=== PATIENT | male | born 1970 | race Caucasian/White ===

== ENCOUNTER 2024-01-08 00:13 | Inpatient (IN) | payer OTHER, SELFPAY ==
[2024-01-07 19:10] VITALS: BP 149/91
[2024-01-07 19:29] LABS: % Basophils 0.7 % (0-2); % Eosinophils 7.5 % (0-6); % Immature Granulocytes 0.2 % (0-0.5); % Lymphocytes 10.1 % (20.5-51.1); % Monocytes 17.4 % (1.7-9.3); % Neutrophils 64.1 % (42.2-75.2); Absolute Eosinophils 0.4 10^3/uL (0-0.7); Absolute Lymphocytes 0.6 10^3/uL (1.2-3.4); Absolute Neutrophils 3.8 10^3/uL (1.4-6.5); Hematocrit 39.5 % (39.0-52.0); Hemoglobin 13.8 g/dL (13.0-18.0); Mean Corp Hgb Conc. 34.9 g/dL (33.0-37.0); Mean Corpuscular Hgb 28.8 pg (27.0-31.0); Mean Corpuscular Volume 82.5 fL (80.0-94.0); Mean Platelet Volume 9.6 fL (7.4-10.4); Nucleated Red Blood Cells % 0 % (-); Platelet Count 139 10^3/uL (130-400); Red Blood Cell Count 4.79 10^6/uL (4.70-6.10); Red Cell Dist. Width 12.4 % (11.5-14.5); White Blood Cell Count 5.9 10^3/uL (4.8-10.8)
[2024-01-07 19:47] LABS: ALT (SGPT) 17 U/L (0-50); AST (SGOT) 19 U/L (17-59); Albumin 4.2 g/dl (3.5-5.0); Alkaline Phosphatase 86 U/L (38-126); Blood Urea Nitrogen 11 mg/dl (9-20); Calcium 8.9 mg/dl (8.4-10.2); Carbon Dioxide 26 mmol/L (22-30); Chloride 105 mmol/L (98-107); Glucose 78 mg/dl (70-99); Potassium 3.9 mmol/L (3.5-5.1); Sodium 142 mmol/L (135-145); Total Bilirubin 0.6 mg/dl (0.2-1.3); Total Protein 6.8 g/dl (6.3-8.2); eGFR > 60.00
[2024-01-07 20:51] VITALS: BMI 32.9
[2024-01-07 20:52] VITALS: BP 142/74
--- NOTE | 2024-01-07 20:52 | ED.GENMED ---
History of Present Illness
General
Chief Complaint: Cough
Source: patient
Exam Limitations: none
Time Seen by Provider: 01/07/24 20:30
History of Present Illness
History of Present Illness:
This is a 52 year old male that comes in with c/o cough. States that he has been coughing for the past 2-3 months. states that this started in October. States that every time he lays down he hears bubbling in his chest. States that 2 weeks ago
he started to cough up blood. States that his PCP said it could be asthma and gave him an inhaler and he had an X-ray done. States that she called today ad told him to come to the ER that the x-ray was abnormal. States that he feels slightly SOB and
he is still coughing up blood. States that for the past 2 days when he has gotten out of his truck he felt like he had a hang over or dizzy. Denies any fever, chills, chest pain, abd pain, nausea, vomiting, diarrhea, headache, urinary burning.
Past History
Past History
ED Past Medical History: None; Negative Asthma, HTN, Hypercholesterolemia or NIDDM
ED Past Surgical History: None
Social History
Tobacco: Former smoker
Alcohol: Daily (Beer or wine 2 glasses)
Personal:
Living: with family
Employment: Employed
Review of Systems
Review of Systems
All Other Systems: ROS reviewed and negative except as documented in HPI and ROS
Constitutional: Reports no symptoms; Denies fever or chills
EENT: Reports no symptoms
Respiratory: Reports cough, hemoptysis and trouble breathing (Slight)
Cardiac: Reports no symptoms; Denies chest pain
ABD/GI: Reports no symptoms; Denies abdominal pain, nausea, vomiting or diarrhea
: Reports no symptoms; Denies dysuria, frequency or urgency
Musculoskeletal: Reports no symptoms
Skin: Reports no symptoms
Neurological: Reports dizzy (for 2 days or like he had a hang over); Denies headache
Psychiatric: Reports no symptoms
Phy Exam
General Physical Exam
General Presentation: well appearing and no apparent distress
General age: appears stated age
General Skin: warm and dry
General Habitus: normal
General Mental: alert
General Hydration: appears well hydrated
ENT Exam
ENT Exam: TM's normal, pharynx normal and neck supple
Eye Exam
Eye Exam: EOMI
Cardiovascular Exam
Cardiovascular Exam: regular rate/rhythm, no edema, no murmur and normal peripheral pulses
Pulmonary Exam
Pulmonary Exam: lungs clear, no respiratory distress, no rales, chest non tender, no crackles, no rhonchi, no wheezing and no cough
Gastrointestinal Exam
Gastrointestinal Exam: normal bowel sounds, non tender, soft, no organomegaly, no pulsatile mass and non distended
Musculoskeletal Exam
Musculoskeletal Exam: full ROM and no edema
Skin Exam
Skin Exam: normal color, warm/dry, no rash and no petechia
Psychiatric Exam
Psychiatric Exam: normal mood/affect
Course
Orders/Labs/Results
Orders:
Orders
01/07/24 19:16
CR Chest - 2 Views Urgent
Comment:
Reason For Exam: sob and cough for 2 months
01/07/24 19:21
Complete Blood Count/With Diff Urgent
Comprehensive Metabolic Panel Urgent
01/07/24 20:44
CT Chest With Iv Contrast Urgent
Comment:
Reason For Exam: abnrmal chest x-ray, Cough up Blood
01/07/24 20:50
PT/INR [Prothrombin Time] Urgent
01/07/24 23:34
Quantify Hemopytsis As Directed
01/07/24 23:35
Consult Notification Routine
Specialty to Notify: IRAD (Interventional Radiology)
IRAD CONSULT Routine
Consulting Provider: Stanton Poole
Was physician already notified: No
Reason for Consult/Procedure: biopsy
Acknowledgement that appropriate orders are entered: Yes
PULMONARY CONSULT Routine
Consulting Provider: Gregorio Rashid
Was physician already notified: No
Reason for consult: pulmonary nodules concern for metstatic disease
01/07/24 23:36
Consult Notification Routine
Specialty to Notify: Pulmonary
01/07/24 23:41
Admit/Transfer Patient As Directed
Co-Sign Provider:
Level of Care: Inpatient admission
Assign to:: Medical/Surgical
Physician / Group: leonely
Diagnosis: pulmonary nodules, concern for metstatic disease
Reason for Hospitalization: concern for metastatic disease
Expected length of stay greater than two midnights?: Yes
ELOS- Estimated Length of Stay in days: 3
I certify the patient meets the requirements for IP care: Yes
PRN Pain Medication Management As Directed
May give lesser potent ordered pain med per pt: Yes
preference::
Protocol:: Medication orders for pain may be administered in a
manner that supports deferring to patient preference
when the pt is:
- Requesting an ordered lesser potent pain medication.
Least to most potent pain medications are defined
as: acetaminophen < NSAID < tramadol < opioids
(morphine, oxycodone, hydromorphone).
- Requesting a lesser dose of the same medication IF
ORDERED.
- Requesting a less intrusive route of administration
if both routes are prescribed by the provider (PO <
IV).
01/07/24 23:42
Code Status As Directed
Resuscitation Status: Full Code
01/08/24 01:36
Acetaminophen [Tylenol] 650 mg PO Q4HPRN PRN
Bisacodyl [Dulcolax] 10 mg RECTAL [id number] PRN
Docusate W/Senna [Senokot-S] 1 tablet PO BIDPRN PRN
Polyethylene Glycol Powder [Miralax] 17 grams PO DAILYPRN PRN
01/08/24 01:36
Activity As Directed
Activity Level: As Tolerated
Venous Foot Pumps As Directed
Location: Bilateral feet
Vital Signs As Directed
Frequency: Per unit guidelines
DX Deep Vein Thrombosis Video Routine
01/08/24 Breakfast
Regular
At Your Request: Full Participation
Basic Metabolic Panel IN AM
Complete Blood Count/No Diff IN AM
01/09/24 06:00
Basic Metabolic Panel IN AM
Complete Blood Count/No Diff IN AM
01/10/24 06:00
Basic Metabolic Panel IN AM
Complete Blood Count/No Diff IN AM
01/11/24 06:00
Basic Metabolic Panel IN AM
Complete Blood Count/No Diff IN AM
01/12/24 06:00
Basic Metabolic Panel IN AM
Complete Blood Count/No Diff IN AM
Abnormal Lab Results
01/07/24
19:21
Absolute Lymphs (auto) 0.6 L 10^3/uL
(1.2-3.4)
Absolute Monos (auto) 1.0 H 10^3/uL
(0.1-0.6)
Lymphocytes % 10.1 L %
(20.5-51.1)
Monocytes % 17.4 H %
(1.7-9.3)
Eosinophils % 7.5 H %
(0-6)
01/07/24 19:21
01/07/24 19:21
Labs unremarkable. PT 13.7 with INR 1.07
Vital Signs
Initial and Last Documented VS:
Initial Vital Signs
Temp Pulse Resp BP Pulse Ox
98 F 89 18 149/91 97
01/07/24 19:10 01/07/24 19:10 01/07/24 19:10 01/07/24 19:10 01/07/24 19:10
Last Documented Vital Signs
Temp Pulse Resp BP Pulse Ox
98.2 F 70 18 132/79 99
01/08/24 02:07 01/08/24 02:07 01/08/24 02:07 01/08/24 02:07 01/08/24 02:07
MDM/Problems Addressed
Differential Diagnosis Includes:
TB, Lung cancer. PE
MDM/Problems Addressed:
This is a 53 year old male that comes in with c/o cough which has been going on for the past 2-3 months. States that he has started to cough up blood over the past 2 weeks. States that he had a chest x-ray done and was called and told to come to the
ER as this was abnormal. states that they are very scarred.
Will check labs and get CT of the chest.
Back into see patient. Explained that his CT shows that he has multiple pulmonary nodules that are most likely Neoplasm/metastases. With patient having Hemoptisis and his new diagnoses will admit patient for further evaluation. Hospitalist notified.
Chronic conditions affecting care:
NA
Acute Exacerbation and/or Progression of Chronic Illness:
NA
*Radiology
Radiology exam reviewed: radiology read reviewed (Chest-Bilateral perihilar fullness/consolidation. Findings are suspicious for abnormal lymphadenopathy. Consider outpatient workup with dedicated contrast-enhanced CT chest. CT chest-Multiple
pulmonary nodules most in keeping with neoplasm/metastasis. The dominent 2.0cm left lower lobe pulmonary ) and all reviewed NAD by ED Provider (CT chest cont-nodule may reflect the primary neoplasm, versus metastasis of unknown origin. The
[facility] pulmonary Nodule advisory board will be notified. Extensive confluent metastatic mediastinal/hilar lymphadenopathy. )
*Pulse Oximetry
Patient hypoxic: no
*EKG
Interpreted by ED Provider?: NA
Rate: EKG- N/A
*Automobile Technician Interpretation
Rate: Automobile Technician- N/A
*Critical Care Note
Total Time (30-74mins, 75-104mins- exclusive of procedures): Not Applicable
ED Attending Note
-
Portions of this chart may have been created with voice recognition software.� Occasional wrong word or��sound alike� substitutions may have occurred due to the inherent limitations of voice recognition software.
Discharge Plan
Departure
Patient Disposition: Admit
Date of Disposition: 01/07/24
Time of Disposition: 23:22
Admit to: Med/Surg
Presentation/result/management discussed w/ accepting MD/DO: Hospitalist
Patient with high blood pressure during this ER visit?: Yes
Condition: Good
Covid-19: Not Applicable
Discharge Problem:
Cough with hemoptysis, Pulmonary nodules possible neoplasm
Interventions
Interventions:
*Risk Screen - Suicide Last Done: 01/08/24 01:37
*General Assessment Last Done: 01/07/24 20:51
*Neglect/Abuse Screening Last Done: 01/07/24 20:51
*ED COVID-19 Vaccine History Last Done: 01/08/24 01:37
*Nursing Disposition Last Done: 01/08/24 01:20
ED- Pulmonary Assessment Last Done: 01/07/24 20:55
Discharge Date and Time
Discharge Date/Time: 01/08/24 01:20
[2024-01-07 21:00] VITALS: BP 131/71
[2024-01-07 21:06] LABS: INR 1.07; PT 13.7 Sec (11.4-14.6)
[2024-01-07 22:12] VITALS: BP 133/80
[2024-01-07 23:00] VITALS: BP 145/80
--- NOTE | 2024-01-07 23:23 | HPS.HSE ---
Family Physician
-
Family Physician: Moni Krishna
Chief Complaint
-
cough
History of Present Illness
This is a 52 year old male with no significant PMH presented to us with cough for 3 months. States that 2 weeks ago he started to cough up blood, some tissues which is sometimes bloody or white. States that his PCP said it could be asthma and gave
him an inhaler and he had an X-ray done. States that she called today ad told him to come to the ER that the x-ray was abnormal. States that he feels slightly SOB and he is still coughing up blood. States that for the past 2 he feels dizzy. Denies
any fever, chills, chest pain, abd pain, nausea, vomiting, diarrhea, headache, urinary burning.
chest CT with Multiple pulmonary nodules most in keeping with neoplasm/metastases. The dominant 2.0 cm left lower lobe pulmonary nodule may reflect the primary neoplasm, versus metastasis of unknown origin. The [facility] Pulmonary Nodule
Advisory Board will be notified.
2. Extensive confluent metastatic mediastinal/hilar lymphadenopathy.
admitting for further managment.
Medical History
Past Medical History
Past Medical History: Reports None
Past Surgical History: Reports None
Social History
Tobacco: Former Smoker
Alcohol: Occasional
Drug: None
Personal:
Living: With Family
Employment: Employed
Family History
Family History: Cancer (aunt with lung ca)
Allergies / Home Medications
Allergies reflects when Allergies were last updated in [facility] Financial [employer].
Home Medications with original date entered in [facility]
Allergy/Medication List:
Allergies
Allergy/AdvReac Type Severity Reaction Status Date / Time
No Known Allergies Allergy Unverified 01/07/24 19:09
Home Medications
albuterol sulfate 90 mcg/actuation aerosol inhaler 1 puff inhalation R Q4HPRN PRN sob/wheezing 01/07/24
Review of Systems
-
Constitutional: Reports No Symptoms
EENT: Reports No Symptoms
Respiratory: Reports Cough, Hemoptysis and Trouble Breathing
Cardiac: Reports No Symptoms
Abdomen/GI: Reports No Symptoms
: Reports No Symptoms
Musculoskeletal: Reports No Symptoms
Skin: Reports No Symptoms
Neurological: Reports Dizzy
Endocrine: Reports No Symptoms
Hematologic/Lymphatic: Reports No Symptoms
Psych: Reports No Symptoms
Physical Exam
Vital Signs
Vital Signs
Temp Pulse Resp BP Pulse Ox
98.0 F 76 23 131/71 95
01/07/24 20:52 01/07/24 21:45 01/07/24 21:45 01/07/24 21:00 01/07/24 21:12
Physical Exam
General: Well Developed, Well Nourished and No Apparent Distress
HEENT: NormoCephalic, Moist mucous membranes and Atraumatic
Respiratory: Clear
Cardiac: S1/S2 and Regular Rhythm; No Murmur or Rub
GI: Soft, Non Tender, Non Distended and Normal Bowel Sounds; No Organomegaly
Rectal: Deferred by Provider
Musculoskeletal: No Clubbing, No Cyanosis and No Edema
Skin: No Rash
Neuro: AO x 3 and Nonfocal/grossly intact
Psych: Calm
Laboratory Results
-
01/07/24 19:21
01/07/24 19:21
Laboratory Results
PT 13.7 Sec (11.4-14.6) 01/07/24 20:50
INR 1.07 01/07/24 20:50
Total Bilirubin 0.6 mg/dl (0.2-1.3) 01/07/24 19:21
AST 19 U/L (17-59) 01/07/24 19:21
ALT 17 U/L (0-50) 01/07/24 19:21
Alkaline Phosphatase 86 U/L (38-126) 01/07/24 19:21
Data Reviewed
-
Diagnostic Radiology: Report Reviewed by me
CT Scan: Report Reviewed by me
Impression/Plan
-
#hemoptysis/pulmonary nodules concern for metastatic disease
-CT with Multiple pulmonary nodules most in keeping with neoplasm/metastases. The dominant 2.0 cm left lower lobe pulmonary nodule may reflect the primary neoplasm, versus metastasis of unknown origin. The [facility] Pulmonary Nodule Advisory
Board will be notified.
2. Extensive confluent metastatic mediastinal/hilar lymphadenopathy.
-chest x ray with Bilateral perihilar fullness/consolidation. Findings are suspicious for abnormal lymphadenopathy. Consider outpatient workup with dedicated contrast-enhanced CT chest.
-pulmonology consulted
-IR and pulmonology consulted
-quantify hemoptysis
#DVT prophylaxis
-scd
#CODE status
-full code
--- NOTE | 2024-01-07 23:41 | W.PN.UPDATE ---
Update Note
Progress Note Update
This note serves as an addendum to the H&P by conference director ALEX Swathi MCKEON
HPI
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
- 2 weeks ago new onset of cough up blood.
- PCP said it could be asthma and gave him an inhaler and he had an X-ray done.
- OP CXR was abnormal sent in to ER
- slightly SOB and he is still coughing up blood.
ROS Denies any fever, chills, chest pain, abd pain, nausea, vomiting, diarrhea, headache, urinary burning.
PHX: Nil
Reviewed VS: Unremarkable
PE
Gen: Not toxic
HEENT:anicteric
Neck: supple
Lungs:clear, no respiratory distress, no rales, chest non tender, no crackles, no rhonchi, no wheezing
Cor: RRR S1 S2
Abdomen: soft and benign
MEAL COOKER: AAO3
MS: no edema
Psych:Nl affect
Data
Unremarkable CBC
Unremarkable CMP
CT Chest With Iv Contrast
1. Multiple pulmonary nodules most in keeping with neoplasm/metastases. The dominant 2.0 cm left lower lobe pulmonary nodule may reflect the primary neoplasm, versus metastasis of unknown origin. The [facility] Pulmonary Nodule Advisory Board
will be notified.
2. Extensive confluent metastatic mediastinal/hilar lymphadenopathy.
No prior hospitalist admission:
ASSESSMENT & PLAN
Pending Rx reconciliation
Hemoptysis
CT POS for Multiple pulmonary nodules most in keeping with neoplasm/metastases.
Extensive confluent metastatic mediastinal/hilar lymphadenopathy.
- Quantify hemoptysis
- IR consult for [place]
- Pul consult
DVT Px: SCD
Full code
IP MS
[2024-01-08 00:19] VITALS: BP 142/86
[2024-01-08 01:00] VITALS: BP 133/86
[2024-01-08 01:30] VITALS: BMI 31.8
--- NOTE | 2024-01-08 01:30 | PTCARENOTE ---
Received patient from ED. Patient AAOx, ambulated to the bedside independently. Assessment completed. VSS. Patient oriented to the unit. Patient verbalized an understanding to ring as needed.
[2024-01-08 02:07] VITALS: BP 132/79
[2024-01-08 08:41] VITALS: BP 148/77
--- NOTE | 2024-01-08 08:49 | CON.PUL ---
Consultation
Consultation Request
Date/Time Consultation Requested: 01/07/20242334
Date/Time Consultation Performed: 01/08/2024836
Requesting Provider: WILBER Rosa
Performing Provider: Gregorio Rashid MD
Reason for Consultation: Abnormal chest CT - lung nodules and mediastinal/hilar lymphadenopathy
Medical History
-
Chief Complaint: Coughing up blood
History of Present Illness:
53-year-old male former tobacco smoker with a 7�8-pack-year history presents with coughing up blood for about 1-2 weeks. The amount of blood coming up is droplets which feel rubbery in consistency. His cough started about 2 months ago and he has
had a history of walking pneumonia. Of note, he did have a chest x-ray earlier this past week at [facility] and was called just yesterday and told that there was some abnormalities however due to his continued cough with bloody phlegm he came here
to the ER [facility] for further evaluation. Of note, he did bring this up with his PCP and said that his cough could be due to asthma and he was given an inhaler however his symptoms persisted. He is also been feeling some dizziness. He was
afebrile in the ER to 90 �F, pulse rate 89, breathing at 18 breaths/min, BP 149/91 and saturating 97% on room air. Labs significant for Hb 13.8, and absolute eosinophil count 400. CXR showed bilateral perihilar fullness with suspected
lymphadenopathy. CT chest with IV contrast showed multiple lung nodules with largest in the left lower lobe measuring 2 cm, with extensive confluent metastatic mediastinal/hilar lymphadenopathy. He was admitted to Med-Surg under the hospitalist
and pulmonary consulted for additional management/recommendations.
When I saw the patient this morning he was resting in bed in no acute distress on room air breathing comfortably. His sister, Henrietta was in the room and all questions were answered. He denies having any history of coughing up blood, has no
history of lung cancer or cancer in general, and no family history of lung cancer or lymphoma although his aunt did have brain cancer. 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 No
recent illness or travel. Denies unintentional weight loss or night sweats. He wants to get a biopsy of his lymph nodes that are enlarged and lung nodules but he does not want to stay in the hospital past the day if the biopsy will not happen
until next week. He currently denies chest pain, DEVI, abdominal pain, nausea, fevers or chills. He did cough up a little bit of blood this morning but it was a small amount and has not recurred since that time.
PMHx: Former tobacco smoker (quit approximately 12 years ago with about a 7�8-pack-year history)
PSHx: Non-contributory
Past Medical History
Past Medical History: Other (Above as per HPI)
Past Surgical History: Other (Above as per HPI)
Social History
Tobacco: Former Smoker (Quit 12 years ago, smoked 0.75 PPD X 10 years)
Alcohol: Occasional
Drug: None
Personal:
Living: With Family
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
Family History
Family History: Cancer (Aunt: Brain cancer)
Allergies / Home Medications
Allergies
Allergy/AdvReac Type Severity Reaction Status Date / Time
No Known Allergies Allergy Unverified 01/07/24 19:09
Home Medications
�Medication �Instructions �Recorded �Confirmed �Last Taken �Type
albuterol sulfate 90 mcg/actuation 1 puff inhalation R Q4HPRN PRN 01/07/24 01/07/24 01/07/24 History
aerosol inhaler sob/wheezing
Review of Systems
-
History Source: Patient
All other systems: Negative unless noted
Vitals / Labs / Diagnostic Testing
Vital Signs
Temp Pulse Resp BP Pulse Ox
98.5 F 65 16 148/77 96
01/08/24 08:41 01/08/24 08:41 01/08/24 08:41 01/08/24 08:41 01/08/24 09:22
Lab Data
01/08/24 08:38
01/08/24 08:38
Laboratory Results
01/07/24
20:50
PT 13.7
INR 1.07
Diagnostic Testing:
Physical Exam
-
HEENT: Normocephalic and Anicteric
Cardiovascular: S1/S2 and Peripheral Edema (negative)
Respiratory: Wheeze (negative), Rales (negative), Rhonchi (negative) and Non-Labored Respirations
GI: Soft, Non Distended, Non Tender and Normal Bowel Sounds
Neurology: AO x 3 and Tremors (negative)
Skin: Warm and Dry
General: Respiratory Distress (negative), Comfortable, Chills (negative) and Sweats (negative)
Assessment
-
Assessment: 53-year-old male former tobacco smoker with a 7�8-pack-year history presents with coughing up blood for about 1-2 weeks. The amount of blood coming up is droplets which feel rubbery in consistency. His cough started about 2 months ago
and he has had a history of walking pneumonia. Of note, he did have a chest x-ray earlier this past week at [facility] and was called just yesterday and told that there was some abnormalities however due to his continued cough with bloody phlegm he
came here to the ER [facility] for further evaluation. Of note, he did bring this up with his PCP and said that his cough could be due to asthma and he was given an inhaler however his symptoms persisted. He is also been feeling some dizziness.
He was afebrile in the ER to 90 �F, pulse rate 89, breathing at 18 breaths/min, BP 149/91 and saturating 97% on room air. Labs significant for Hb 13.8, and absolute eosinophil count 400. CXR showed bilateral perihilar fullness with suspected
lymphadenopathy. CT chest with IV contrast showed multiple lung nodules with largest in the left lower lobe measuring 2 cm, with extensive confluent metastatic mediastinal/hilar lymphadenopathy. He was admitted to Med-Surg under the hospitalist
and pulmonary consulted for additional management/recommendations.
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
Impression:
#Multiple pulmonary nodules with extensive hilar/mediastinal lymphadenopathy suspicious for metastatic lung cancer
#Nqu-ujfq-djxpzavgcds hemoptysis likely due to acute bronchitis however may also be due to undiagnosed lung cancer
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
#Former tobacco smoker, quit 12 years ago with 7.5-pack-year history
Plan:
- Recommend tissue biopsy with robotic bronchoscopy with EBUS; his left lower lobe nodule is the dominant nodule and peripheral, however he does have other perihilar nodules which would easily be accessible via robotic bronchoscopy
- If for whatever reason robotic bronchoscopy is delayed then we can have IR perform CT-guided transthoracic needle aspiration on left lower lobe nodule; otherwise I will arrange for robotic bronchoscopy with EBUS for this upcoming week or the week
after depending on scheduling
- We will obtain an outpatient whole-body PET/CT with brain MRI
- Will also refer to see oncology as an outpatient
- Of note, his imaging is not consistent with silicosis, as he admits that he has been exposed to silica through his job (construction)
- Maintain SpO2 >90-94% --> currently on room air breathing comfortably and saturating 96%
- Outpatient pulmonary follow up with me for full PFTs
- Incentive spirometer encouraged
- Replete electrolytes with K>4, Mg>2
- Maintain euglycemia with goal BG >100 and <180
- prn nebulized bronchodilators - not currently bronchospastic
- DVT ppx
Patient being prepared for discharge home. I will arrange for outpatient pulmonary follow up with EBUS-bronchoscopy with robotic bronchoscopy. He will also need outpatient whole body PET/CT with brain MRI with Oncology outpatient follow up. No
additional pulmonary recommendations at this time. Pulmonary service will now sign off. Thank you for allowing us to be involved in the care of this patient. Please reconsult if there are any additional questions/concerns, or if patient's
respiratory status deteriorates.
Data:
CT chest with IV contrast 01/07/2024:
1. Multiple pulmonary nodules most in keeping with neoplasm/metastases. The dominant 2.0 cm left lower lobe pulmonary nodule may reflect the primary neoplasm, versus metastasis of unknown origin. The [facility] Pulmonary Nodule Advisory Board
will be notified.
2. Extensive confluent metastatic mediastinal/hilar lymphadenopathy.
CXR 01/07/2024: Bilateral perihilar fullness/consolidation. Findings are suspicious for abnormal lymphadenopathy. Consider outpatient workup with dedicated contrast-enhanced CT chest.
Total time spent today was 56 minutes for this encounter. Time includes reviewing laboratory test/imaging results, reviewing pertinent medical records, obtaining and reviewing medical history, performing an appropriate exam, ordering medications,
tests and procedures. Time also includes documentation of this encounter, coordinating patient care and communicating with other healthcare professionals. Total time does not include separately billed tests performed on this date of service.
--- NOTE | 2024-01-08 08:56 | W.PN.UPDATE ---
Update Note
Progress Note Update
I saw and evaluated the patient. I reviewed the resident�s note and agree with findings and plan as documented in the resident�s note.
Scant hemoptysis overnight. Denies shortness of breath.
Gen: NAD, AAOx3.
Eyes: EOMI, PERRLA, no scleral icterus.
Neck: supple.
CV: RRR, +S1/S2, no m/r/g.
Resp: CTAB, no rales, wheezes, or rhonchi.
Skin: No rashes.
Neuro: CN 2-12 intact, non-focal.
Psych: Normal mood and affect.
CTA chest:
1. Multiple pulmonary nodules most in keeping with neoplasm/metastases. The dominant 2.0 cm left lower lobe pulmonary nodule may reflect the primary neoplasm, versus metastasis of unknown origin. The [facility] Pulmonary Nodule Advisory Board
will be notified.
2. Extensive confluent metastatic mediastinal/hilar lymphadenopathy.
Hemoptysis:
-Concern for underlying malignancy as above
-Pulmonary consult placed and case discussed with Dr. Rashid
-Will need CT-guided biopsy by interventional radiology or transbronchial biopsy via EBUS
-Hb 13.8, minimal hemoptysis overnight
-Suspect patient can be discharged with continued outpatient workup
Obesity due to excess calories:
-Encourage weight loss
-Affects all aspects of care
[2024-01-08 09:18] VITALS: BP 129/81; BP 138/81; BP 140/81; PULSE 67; PULSE 68; PULSE 76
--- NOTE | 2024-01-08 09:26 | W.PN.HOSP.TC ---
Addendum entered and electronically signed by Francois Sanchez MD 01/08/24 14:18:
Total time spent on d/c = 31 min. This included today's physical exam, progress note, review of laboratory and diagnostic data, preparation of discharge documents and prescriptions, and discussions about the pt's hospital course and discharge plan
with the patient and other lpn medical assistant involved in the patient's care.
Original Note:
Today's Communication/Plan
-
.
Assessment / Plan
Assessment / Plan
Assessment/Plan
#Hemoptysis/pulmonary nodules on CT chest
-CTA chest- Multiple pulmonary nodules most in keeping with neoplasm/metastases. The dominant 2.0 cm left lower lobe pulmonary nodule may reflect the primary neoplasm, versus metastasis of unknown origin.
-chest x ray with Bilateral perihilar fullness/consolidation. Findings are suspicious for abnormal lymphadenopathy.
-Pulmonary consulted, pending evaluation
-Will possibly need outpatient workup including CT-guided biopsy or transbronchial biopsy
-Hemoglobin stable, no evidence of bleeding
-Improved hemoptysis overnight
Obesity due to excess calories
-Encouraged weight loss
DVT prophylaxis; SCDs
CODE STATUS; full code
Anticipated Discharge: Within 24 hours
Subjective/Interval History
-
Overnight, patient reports improved hemoptysis. Denies chest pain, denies shortness of breath.
Objective Data
-
Labs:
Laboratory Results
01/07/24 01/08/24
20:50 08:38
WBC Pending
Hgb Pending
Hct Pending
Plt Count Pending
PT 13.7
INR 1.07
Sodium Pending
Potassium Pending
Chloride Pending
Carbon Dioxide Pending
BUN Pending
Creatinine Pending
Glucose Pending
Calcium Pending
Vital Signs:
Vital Signs
Temp Pulse Resp BP Pulse Ox
98.5 F 65 16 148/77 96
01/08/24 08:41 01/08/24 08:41 01/08/24 08:41 01/08/24 08:41 01/08/24 09:22
Review of Systems
-
All other systems: Reviewed and negative (except as documented)
Physical Exam
-
General: Well Developed, Well Nourished and No Apparent Distress
HEENT: Normocephalic and Atraumatic
Respiratory: Clear to Auscultation
Cardiac: Regular Rhythm and S1/S2
GI: Soft, Nontender and Nondistended
Musculoskeletal: No Edema
Neuro: Awake, Alert, Oriented and AO x 3
Psych: Calm
[2024-01-08 09:43] LABS: Hematocrit 39.9 % (39.0-52.0); Hemoglobin 13.6 g/dL (13.0-18.0); Mean Corp Hgb Conc. 34.1 g/dL (33.0-37.0); Mean Corpuscular Hgb 28.6 pg (27.0-31.0); Platelet Count 127 10^3/uL (130-400); Red Blood Cell Count 4.75 10^6/uL (4.70-6.10); Red Cell Dist. Width 12.5 % (11.5-14.5); White Blood Cell Count 5.8 10^3/uL (4.8-10.8)
[2024-01-08 09:49] LABS: Blood Urea Nitrogen 8 mg/dl (9-20); Calcium 8.7 mg/dl (8.4-10.2); Carbon Dioxide 23 mmol/L (22-30); Chloride 107 mmol/L (98-107); Estimated Creatinine Clearance > 125 ml/min; Glucose 101 mg/dl (70-99); Potassium 4.2 mmol/L (3.5-5.1); Sodium 142 mmol/L (135-145); eGFR > 60.00
--- NOTE | 2024-01-08 11:45 | CM ---
Reviewed the chart notes and spoke with the patient and his spouse at the bedside. The patient resides with his spouse in a two story home with 10 steps to enter. The patient reports no DME/VN/SNF in the past. The patient confirmed his pharmacy
of choice is [facility]. CM continues to be available to patient/family and is monitoring medical plan for needs at discharge.
Plan: Discharge to home when medically stable.
--- NOTE | 2024-01-08 14:20 | W.DCSUMMARY ---
Addendum entered and electronically signed by Francois Sanchez MD 01/09/24 08:20:
Read, reviewed, and agree. See same day progress note for additional details.
Original Note:
Discharge Summary
Discharge Data
Date of Admission: 01/08/24
Date of Discharge: 01/08/24
-
Pending Results: No
Hospital Course
This is a 53-year-old male who presented to ED 01/07/2024 complaining of ongoing cough for 3 months. Patient stated when her blood with some tissues, hence decided to see his PCP. PCP advised patient to get an x-ray done. Due to abnormal
x-ray, he was sent to ER for evaluation. On presentation to the ER, patient was afebrile with vital signs stable. He did not require oxygen. Hemoglobin was stable at 13.8. Evaluation with a chest x-ray showed bilateral perihilar
fullness/consolidation. Further workup with a chest CT was needed. Evaluation with chest CT in the ED showed multiple pulmonary nodules, including 2.0 cm left lower lobe pulmonary nodule, reflect primary neoplasm versus metastasis of unknown
origin. In addition extensive confluent metastatic mediastinal/hilar lymphadenopathy was seen on chest CT. Pulmonology was consulted for further evaluation. It was determined that he will require EBUS-bronchoscopy with robotic bronchoscopy, And
further workup/follow-up with the [facility] as an outpatient. In addition, he would also need outpatient whole body PET/CT with brain MRI with oncology outpatient follow-up. Throughout the course of his hospital stay, his cough and hemoptysis
improved. He denied chest pain, denied shortness of breath. Patient will be discharged today with plans to follow-up with [facility] and oncologist outpatient.
Discharge Plan
-
Patient Disposition: Home (Routine Discharge)
Discharge Diagnosis/Procedures: Hemoptysis
pulmonary nodules on CT chest
Condition: Good
Diet: As tolerated
Activity: No restrictions
Driving Restrictions: As prior to admission
Referrals:
Gregorio Rashid MD [Active] - in less than 1 week (will need robotic bronchoscopy with EBUS for multiple lung nodules and mediastinal/hilar lymphadenopathy)
Moni Krishna PA-C [Family Provider] -
Prescriptions:
Continued
albuterol sulfate 90 mcg/actuation HFA aerosol inhaler
1 puff INHALATION R Q4HPRN PRN (Reason: sob/wheezing)
Discharge Orders:
Discharge Patient (As Directed); Ordered 01/08/24
Ordered By: Francois Sanchez
Discharge Date and Time
Print Language: SAMI
[2024-01-08 15:06] VITALS: BP 151/82
== END 2024-01-08 15:20 | disposition home or self-care (01) | DRG 204 ==
LOC: 2 NORTH 00:13
PROVIDERS: Clinical Nurse Specialist Family Health; Registered Nurse; Student in an Organized Health Care Education/Training Program; ADMITTING PHYSICIAN Internal Medicine; ATTENDING PHYSICIAN Internal Medicine; CONSULT PHYSICIAN Internal Medicine Critical Care Medicine; EMERGENCY PHYSICIAN Student in an Organized Health Care Education/Training Program; FAMILY PHYSICIAN Physician Assistant
DX: R91.8 Other nonspecific abnormal finding of lung field (principal); R04.2 Hemoptysis; E11.9 Type 2 diabetes mellitus without complications; I10 Essential (primary) hypertension; R59.0 Localized enlarged lymph nodes; E78.00 Pure hypercholesterolemia, unspecified; Z77.29 Contact with and (suspected) exposure to other hazardous substances; Z79.899 Other long term (current) drug therapy; Z87.891 Personal history of nicotine dependence; Z87.01 Personal history of pneumonia (recurrent); Z80.8 Family history of malignant neoplasm of other organs or systems
CPT/HCPCS: 71046; 71260; 80048; 80053; 85025; 85027; 85610; 99285; Q9967

== ENCOUNTER → 2024-01-12 16:23 | Outpatient (REF) | payer OTHER, SELFPAY ==
[2024-01-12 18:02] LABS: APTT 27.5 Sec (23.4-35.0)
== END ==
LOC: RCS 16:23
PROVIDERS: ATTENDING PHYSICIAN Internal Medicine Critical Care Medicine
DX: R91.8 Other nonspecific abnormal finding of lung field (principal); Z01.82 Encounter for allergy testing
CPT/HCPCS: 36415; 85730; 93005

== ENCOUNTER 2024-01-17 06:22 | Day surgery (SDC) | payer OTHER, SELFPAY ==
[2024-01-17] VITALS (8 sets, daily range): BP systolic 110–133; BP diastolic 59–74; BMI 30.3
== END 2024-01-17 12:00 | disposition home or self-care (01) ==
LOC: GI 06:22
PROVIDERS: ATTENDING PHYSICIAN Internal Medicine Critical Care Medicine
DX: R91.8 Other nonspecific abnormal finding of lung field (principal); R59.0 Localized enlarged lymph nodes; R04.2 Hemoptysis; J98.4 Other disorders of lung; C34.32 Malignant neoplasm of lower lobe, left bronchus or lung; C77.1 Secondary and unspecified malignant neoplasm of intrathoracic lymph nodes; C34.2 Malignant neoplasm of middle lobe, bronchus or lung
CPT/HCPCS: 31629; 31653; 31628; 31627; 31624; 31623; 31654; 88172; 88173; 88305; 71045; 76000; 81459; 88112; 88333; 88341; 88342; 94640; C1887

== ENCOUNTER 2024-11-28 11:03 | Emergency (ER) | payer BC, SELFPAY ==
--- NOTE | 2024-11-28 11:07 | CON.NEURO ---
Addendum entered and electronically signed by Uriel Bergman MD 11/28/24 13:29:
Studies reviewed.
I have personally examined the patient. I reviewed and agree with the BANQUET WAITER/WAITRESS's Note.
My addenda:
Awake, alert, interactive. No acute distress.
Speech intact.
Follows 2-step requests w/o difficulty. No tremor.
Extra-ocular movements grossly intact.
Facial movements full and symmetric. Hearing intact to normal conversational volume.
Normal UE movements bilaterally.
Neck: full ROM.
Chest: no dyspnea
Heart: no JVD
Ext: (-) Clubbing, (-) Cyanosis, (-) Edema
IMPRESSIONS/RECOMMENDATIONS:
Abrupt onset of visual change with blurred vision both monocular and bilaterally
Most likely unrelated to the patient's recent acute ischemic stroke diagnosed during a hospitalization at an outside hospital
There is the possibility of a paraneoplastic etiology, migrainous etiology although the patient is not currently experiencing a headache and possibly metabolic causes
Based on outside hospital test results, there is no additional testing that is needed at this time
Based on the patient using apixaban routinely, would maintain this medication to reduce risk of future ischemic lesions
No clear indication for additional neurological testing at this time
D/W patient / family by phone/ nursing
All questions answered.
Will continue to follow as needed.
Original Note:
Documented by User: Sherice Clifford NP 11/28/24 13:13
Neuro Assessment/Plan
Assessment
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
Head CT 11/28/2024: No acute intracranial abnormality. ASPECT score: 10
Data from [facility] summarized below
Brain MRI 11/25/2024: �Small focus of acute or subacute right frontal cortical ischemia, minimal chronic microangiopathy. No intracranial masses observed.
TTE 11/23/2024: Normal left ventricular function. The estimated ejection fraction is 60-65%. Normal right ventricular size and function, by limited views. No obvious RV strain. No significant hemodynamic valvular disease however not all valves were
well visualized. Doppler signal is inadequate to assess pulmonary hypertension. No previous study available for comparison.
CTA head and neck 11/22/2024: No evidence of focal stenosis, dissection or aneurysm formation.
Labs: Cholesterol 126, LDL 76, Hgb A1C 5.5
Impression: acute visual disturbance with recently diagnosed CVA
Plan
-continue Eliquis
-continue to follow up with quality process lead for TTE to rule out PFO as planned
-continue to follow up with [facility] as planned
-continue to follow up with hematology/oncology as planned
-stroke education material to be provided
All questions encouraged and answered, plan of care discussed with Dr. Pacheco Sylvester, patient and
Consultation
Order
Date of Consultation: 11/28/24
Requesting Provider: hospitalist
Reason for Consult: stroke alert
Subjective/Objective
Subjective Data
Date of Service: November 28, 2024
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 Patient states last Wednesday on 11/22/2024 saw checkerboard flashing lights and blurry vision
to his right eye so he pulled over. Symptoms resolved and drove home. When he got home he told his who instructed him to go to the hospital and was subsequently admitted to [facility] on the same day. There, CTA head and neck showed no
evidence of focal stenosis, dissection or aneurysm formation, echo unrevealing. He was discharged on Wednesday11/25/2024. He had a brain MRI on 11/25 revealed small focus of acute or subacute right frontal cortical ischemia. No intracranial masses
observed. They wanted to get a TTE to ensure no PFO but he did not get it b/c he left AMA as he did not feel he was being monitored closely enough. They recommended he see neuro, cardiology and and eye doctor. He would like to come to [place] for neuro
and cardiology. Breathing was worse over the weekend and he was seen in the [facility]. He was given a medrol pack. He is currently on Eliquis 5 mg bid last dose this morning. This morning around 10:30 noticed blurry vision to both eyes and presented to
the hospital for evaluation as a stroke alert. In ED, BP 133/80 HR 102. Current exam with blurred vision to both eyes. Denies headache, dizziness. Denies issues with speech or swallowing. Denies numbness, tingling or weakness in his extremities.
Notes some issues with constipation due to hemorrhoids. Current NIHSS 0. Not a TNK candidate due to being on anticoagulation and low NIHSS.
Objective Data
Patient Allergies
No Known Allergies Allergy (Verified 01/17/24 07:29)
CVA Assessment
Onset of Stroke Symptoms
Onset of symptoms known: Yes
Date of onset of symptoms: 11/28/24
Time of onset of symptoms: 10:30
Time pt last seen normal is known: Yes
Date last time pt seen normal: 11/28/24
Time last time pt seen normal: 10:30
NIH Stroke Score
Level of Consciousness: 0 - Alert
LOC Questions: 0-Answers both correctly
LOC Commands: 0-Performs both correctly
Best Horizontal Gaze: 0-Normal
Visual Ballard: 0=Normal, no visual loss
Facial Palsy: 0=Normal, symmetrical
Motor - Right Arm: 0=No drift 10 seconds
Motor - Left Arm: 0=No drift 10 seconds
Motor - Right Le-No drift 5 seconds
Motor - Left Le-No drift 5 seconds
Limb Ataxia: 0-Absent
Sensation: 0-Normal
Best Language: 0-No aphasia
Dysarthria: 0-Normal
Extinction and Inattention: 0-No abnormality
NIH Total Score:: 0
Tenecteplase Contraindications
Inclusion and Exclusion criteria reviewed: Yes
Reasons for NON-Tx with Thrombolytics ABSOLUTE Exclusions: Patient taking oral anticoagulant and last dose within 48 hours
IAT Contraindications: NIHSS < 6
Modified [place] Score (MRS)
-
Modified [place] Scale (mRS): No symptoms
Score: 0
Data Reviewed
-
CT-A: Report Reviewed
CT Head: Report Reviewed and Image Reviewed
MRI Head: Report Reviewed
Medical Test Reports: Report Reviewed
Labs: Report Reviewed
Lipid Profile: Report Reviewed
HgbA1C: Report Reviewed
Reviewed with: Physician, Patient and Family
Old Records: Summarized
Medications
-
Home Medications
�Medication �Instructions �Recorded
albuterol sulfate 90 mcg/actuation 1 puff inhalation R Q4HPRN PRN 01/07/24
aerosol inhaler sob/wheezing
Past History
Past History
ED Past Medical History: None; Negative Asthma, HTN, Hypercholesterolemia or NIDDM
ED Past Surgical History: None
Family/Social History
Tobacco: Former smoker
Alcohol: Daily (Beer or wine 2 glasses)
Personal:
Living: with family
Employment: Employed

Documented by User: Uriel Bergman MD 11/28/24 13:26
CVA Assessment
NIH Stroke Score
NIH Total Score:: 0
Modified [place] Score (MRS)
-
Score: 0
[2024-11-28 11:18] VITALS: BP 133/80
[2024-11-28 11:27] VITALS: BP 133/80; BMI 27.0
--- NOTE | 2024-11-28 11:54 | ED.CVA ---
History of Present Illness
General
Chief Complaint: CVA/TIA Symptoms
Time Seen by Provider: 11/28/24 11:12
Onset of Stroke Symptoms
Onset of symptoms known: Yes
Date of onset of symptoms: 11/28/24
History of Present Illness
History of Present Illness:
54-year-old male with history of stage IV non-small cell lung carcinoma presenting to the emergency department for visual changes. Patient reports prior to arrival he started to have blurred vision. Notes similar symptoms last week, at which point
he was admitted to [facility], had thorough reported stroke workup including MRI and CT angiogram without significant acute pathology. Patient with prior history of PE and DVT, now on Eliquis with concern that patient may have had a retinal
artery occlusion. He was placed on dual antiplatelet therapy. He was instructed to follow-up with ophthalmology and was supposed to get a LYN, however left the hospital prior to getting the LYN. They told him in [place] that he may have had a
TIA. He notes that his symptoms last week or visual as well. He was supposed to see his oncologist today for chemotherapy, however did not make it to the appointment. Additionally notes some issues with constipation due to hemorrhoids. Denies
vomiting or significant bloating. Denies weakness or numbness to his extremities or additional acute medical complaint
Past History
Past History
ED Past Medical History: None; Negative Asthma, HTN, Hypercholesterolemia or NIDDM
ED Past Surgical History: None
Social History
Tobacco: Former smoker
Alcohol: Daily (Beer or wine 2 glasses)
Personal:
Living: with family
Employment: Employed
Phy Exam
Physical Exam
Physical Exam:
General: Well-appearing, no clinical signs of dehydration, nontoxic and in no acute distress
HEENT: protecting airway
Neck: appears supple
CV: Normal heart rate, regular rhythm
Resp: No accessory muscle use, no increased work of breathing, lungs clear to auscultation bilaterally
Abd: Soft and non-distended, no tenderness to palpation
Extremities: No deformities, no swelling
Neuro: alert, no focal neurologic deficit
: deferred
Rectal: deferred
Psych: Normal affect
Skin: Intact
NIH Stroke Score
Level of Consciousness: 0 - Alert
LOC questions: 0-Answers both correctly
LOC Commands: 0-Performs both correctly
Best Gaze: 0-Normal
Visual Ballard: 0=Normal, no visual loss
Facial palsy: 0=Normal, symmetrical
Motor - Right Arm: 0=No drift 10 seconds
Motor - Left Arm: 0=No drift 10 seconds
Motor - Right Le-No drift 5 seconds
Motor - Left Le-No drift 5 seconds
Limb Ataxia: 0-Absent
Sensation: 0-Normal
Best Language: 0-No aphasia
Dysarthria: 0-Normal
Extinction and Inattention: 0-No abnormality
Total Score:: 0
Course
Orders/Labs/Results
Orders:
Orders
11/28/24 11:06
CT HEAD STROKE ALERT W/o Cont Urgent
Comment:
Reason For Exam: stroke alert
11/28/24 11:13
Electrocardiogram (*1) Stat
Reason for Study: Other
Other Reason for Exam: neuro symptoms
EKG- Treatment ONCE
11/28/24 11:59
Cardiovascular Evaluation Urgent
Comment: ADD ON
Complete Blood Count/With Diff Urgent
Comprehensive Metabolic Panel Urgent
Free T4 Urgent
Comment: ADD ON
Glycohemoglobin (HgbA1c) Urgent
PTT Urgent
Prothrombin Time Urgent
TSH Urgent
Comment: ADD ON
Troponin I Urgent
Vitamin B12 Urgent
Comment: ADD ON
11/28/24 13:01
Add On- LAB Routine
Tests Added?: lipid panel, hgb A1C, TSH, free t4, B12
Abnormal Lab Results
11/28/24
11:59
WBC 15.9 H 10^3/uL
(4.8-10.8)
RBC 4.55 L 10^6/uL
(4.70-6.10)
Hgb 12.4 L g/dL
(13.0-18.0)
Hct 37.1 L %
(39.0-52.0)
Abs Immat Gran (auto) 0.2 H 10^3/uL
(0-0.05)
Absolute Neuts (auto) 12.4 H 10^3/uL
(1.4-6.5)
Absolute Lymphs (auto) 0.2 L 10^3/uL
(1.2-3.4)
Absolute Monos (auto) 2.0 H 10^3/uL
(0.1-0.6)
Absolute Eos (auto) 0.9 H 10^3/uL
(0-0.7)
Immature Gran % 1.1 H %
(0-0.5)
Neutrophils % 78.4 H %
(42.2-75.2)
Lymphocytes % 1.4 L %
(20.5-51.1)
Monocytes % 12.7 H %
(1.7-9.3)
PT 18.4 H Sec
(11.4-14.6)
Sodium 132 L mmol/L
(135-145)
Carbon Dioxide 21 L mmol/L
(22-30)
BUN 23 H mg/dl
(9-20)
Glucose 118 H mg/dl
(70-99)
ALT 63 H U/L
(0-50)
Albumin 3.1 L g/dl
(3.5-5.0)
11/28/24 11:59
11/28/24 11:59
Vital Signs
Initial and Last Documented VS:
Initial Vital Signs
Pulse Resp Pulse Ox
104 20 95
11/28/24 11:17 11/28/24 11:17 11/28/24 11:17
Last Documented Vital Signs
Temp Pulse Resp BP Pulse Ox
98.1 F 99 22 137/85 95
11/28/24 11:27 11/28/24 13:15 11/28/24 12:45 11/28/24 13:10 11/28/24 13:15
MDM/Problems Addressed
MDM/Problems Addressed:
54-year-old male with history of stage IV lung cancer presenting to the emergency department with visual changes, which started an hour prior to arrival. Vital signs on arrival significant for mild tachycardia.
On exam, patient is in no acute distress or discomfort. Patient met immediately in hospital room, prehospital stroke alert given onset of symptoms. However, on initial evaluation of patient, notes some blurred vision with recent stroke workup last
week. Additionally patient is on blood thinners. Neurology at bedside and stroke exam performed, NIH of 0 presently. No indication for tPA given low stroke scale and anticoagulation. In discussion with patient, notes recent MRI for same symptoms
as well as CTA, without obvious stroke. In discussion with neurology, recommend repeating CT head without contrast without additional modalities.
11:45 - CT head is negative. In discussion with neuro, without current concern for acute CVA given recent negative workup. From neurology perspective, reports no indication for admission. However does recommend outpatient ophthalmology follow-up
for ocular exam. Patient does note some additional abdominal discomfort when he has a bowel movement, reports hemorrhoids. No concern for obstruction, no tenderness to the abdomen, no distention. Will start patient on bowel regiment. Did call
patient's oncologist, Dr. Black at [facility]. Patient is due to have chemotherapy today. He notes that if he can get down to the hospital today, they will be able to do the chemotherapy, otherwise can schedule for later in the
week.
14:20 -patient is labs are unremarkable. On reassessment patient remained stable. He is still having some ocular symptoms. In discussion with patient and , plan for outpatient ophthalmologic follow-up. Will provide information. is
requesting that we start patient on a stool softener, will provide prescription. Patient will call his oncologist tomorrow for potential chemotherapy tomorrow. Ultimately feel stable for discharge, however did advise that if symptoms are worsening
in any manner to return immediately to the hospital for reassessment. Patient verbalized understanding
*Pulse Oximetry
SaO2: 95
Oxygen Mode of Delivery: Room air
Patient hypoxic: no
*EKG
Interpreted by ED Provider?: Yes
EKG Intrepretation Date: 11/28/24
EKG Intrepretation Time: 11:59
Interpretation: normal
Heart Rate: 103
Rate: tachycardiac
Rhythm: sinus
[place]: normal axis
Interval: normal interval
QRS Pattern: normal QRS
Ischemia: no ischemia
*Critical Care Note
Total Time (30-74mins, 75-104mins- exclusive of procedures): Not Applicable
ED Attending Note
-
Portions of this chart may have been created with voice recognition software.� Occasional wrong word or��sound alike� substitutions may have occurred due to the inherent limitations of voice recognition software.
Discharge Plan
Departure
Prescriptions:
No Action
albuterol sulfate 90 mcg/actuation HFA aerosol inhaler
1 puff INHALATION R Q4HPRN PRN (Reason: sob/wheezing)
Patient Comments:
pt given an Albuterol neb in SDS pre-procedure.
Referrals:
UNKNOWN - PT DOES,NOT KNOW [Family Provider]
Interventions
Interventions:
*Risk Screen - Suicide Last Done: 11/28/24 11:47
*General Assessment Last Done: 11/28/24 11:27
*Neglect/Abuse Screening Last Done: 11/28/24 11:47
*ED- Fall Risk Assessment Last Done: 11/28/24 11:27
*ED COVID-19 Vaccine History Last Done: 11/28/24 11:27
ED- Pulmonary Assessment Last Done: 11/28/24 11:27
ED- Neurological Assessment Last Done: 11/28/24 11:27
ED- Cardiac Assessment Last Done: 11/28/24 11:27
ED Swallowing Screen Last Done: 11/28/24 12:08
Discharge Date and Time
Print Language: GRENADIAN
[2024-11-28 12:00] VITALS: BP 130/77
[2024-11-28 12:14] LABS: Hematocrit 37.1 % (39.0-52.0); Hemoglobin 12.4 g/dL (13.0-18.0); Mean Corp Hgb Conc. 33.4 g/dL (33.0-37.0); Mean Corpuscular Volume 81.5 fL (80.0-94.0); Nucleated Red Blood Cells % 0 % (-); Platelet Count 321 10^3/uL (130-400); Red Cell Dist. Width 12.7 % (11.5-14.5)
[2024-11-28 12:24] LABS: APTT 24.2 Sec (23.4-35.0); INR 1.51; PT 18.4 Sec (11.4-14.6)
[2024-11-28 12:31] LABS: ALT (SGPT) 63 U/L (0-50); AST (SGOT) 23 U/L (17-59); Albumin 3.1 g/dl (3.5-5.0); Alkaline Phosphatase 94 U/L (38-126); Blood Urea Nitrogen 23 mg/dl (9-20); Calcium 9.0 mg/dl (8.4-10.2); Carbon Dioxide 21 mmol/L (22-30); Chloride 104 mmol/L (98-107); Estimated Creatinine Clearance 116 ml/min; Glucose 118 mg/dl (70-99); Potassium 3.8 mmol/L (3.5-5.1); Sodium 132 mmol/L (135-145); Total Protein 6.3 g/dl (6.3-8.2); eGFR > 60.00
[2024-11-28 12:39] LABS: Troponin I < 0.012 ng/ml
[2024-11-28 13:10] VITALS: BP 137/85
[2024-11-28 13:19] LABS: HDL Cholesterol 36 mg/dl; LDL Cholesterol, Calculated 95 mg/dl; Very Low Density Lipoprotein 24 mg/dl (0-30)
[2024-11-28 13:42] LABS: Glycohemoglobin (HgbA1c) 5.2 % (4.0-5.6)
[2024-11-28 13:51] LABS: TSH 3.07 uIU/ml (0.47-4.68)
[2024-11-28 14:11] LABS: Vitamin B12 655 pg/ml (239-931)
--- NOTE | 2024-11-28 14:45 | EDRN ---
REviewed discharge instructions with patient. Verbalized understanding. Ambulated with steady gait to the lobby.
[2024-11-28 15:33] VITALS: BP 128/75
== END 2024-11-28 14:50 | disposition home or self-care (01) ==
LOC: EMR 11:03
PROVIDERS: EMERGENCY PHYSICIAN Student in an Organized Health Care Education/Training Program
DX: H53.8 Other visual disturbances (principal); R00.0 Tachycardia, unspecified; K59.00 Constipation, unspecified; K64.9 Unspecified hemorrhoids; C34.90 Malignant neoplasm of unspecified part of unspecified bronchus or lung; Z79.01 Long term (current) use of anticoagulants; Z79.02 Long term (current) use of antithrombotics/antiplatelets; Z79.82 Long term (current) use of aspirin; Z86.711 Personal history of pulmonary embolism; Z86.718 Personal history of other venous thrombosis and embolism; Z87.891 Personal history of nicotine dependence
CPT/HCPCS: 99284; 70450; 80053; 80061; 82607; 83036; 84439; 84443; 84484; 85025; 85610; 85730; 93005